=== PATIENT | female | born 1970 | race Caucasian/White ===

== ENCOUNTER → 2016-05-18 16:13 | Outpatient (CLI) | payer OTHER ==
[2016-04-09 16:25] VITALS: BMI 25.5
[~2016-05-18 16:13] MED LIST: ADIPEX-P37.5 M1 PO; EXCEDRIN CAPLET1 TAB PO
== END | disposition home or self-care (01) ==
LOC: D.MAMMO 09:00
DX: Z12.31 Encounter for screening mammogram for malignant neoplasm of breast (principal)

== ENCOUNTER → 2016-05-29 17:19 | Outpatient (CLI) | payer OTHER ==
[2016-04-09 16:25] VITALS: BMI 25.5
== END | disposition home or self-care (01) ==
LOC: D.MAMMO 10:45
DX: R92.8 Other abnormal and inconclusive findings on diagnostic imaging of breast (principal)

== ENCOUNTER 2017-02-05 20:18 | Inpatient (IN) | payer OTHER ==
[2017-02-05 20:52] LABS: BASOPHILS 0.1 % (0-2); EOSINOPHILS 0 % (0-7); HEMOGLOBIN 13.4 g/dL (12-16); IMMATURE GRANULOCYTES 0.1 % (0-5); LYMPHOCYTES 5.6 % (15-50); MCH 31.5 pg (26.0-34.0); MCHC 34.4 g/dL (31.0-37.0); MCV 91.5 fL (80.0-100.0); MEAN PLATELET VOLUME 9.8 fL (7.4-10.4); NEUTROPHILS 87.2 % (40-80); PLATELET COUNT 222 10x3/uL (130-400); RBC 4.26 10x6/uL (4.00-5.40); RDW 12.1 % (11.5-14.5)
[2017-02-05 21:08] LABS: ALBUMIN 3.2 g/dL (3.4-5.0); ANION GAP 14.6 mmol/L (8-16); CALCIUM 8.8 mg/dL (8.5-10.1); CARBON DIOXIDE 24.4 mmol/L (21.0-32.0); CREATININE - SERUM 1.3 mg/dL (0.6-1.3); PROTEIN - SERUM 7.4 g/dL (6.4-8.2)
[2017-02-05 21:19] LABS: HCG SERUM NEGATIVE (NEGATIVE)
[2017-02-05 21:29] LABS: APPEARANCE HAZY (CLEAR); BILIRUBIN NEGATIVE (NEGATIVE); COLOR YELLOW (YELLOW); GLUCOSE NEGATIVE (NEGATIVE); KETONE NEGATIVE (NEGATIVE); NITRITE NEGATIVE (NEGATIVE); PROTEIN 1+ mg/dL (NEGATIVE); UROBILINOGEN NORMAL (NORMAL)
[2017-02-05 21:31] LABS: BACTERIA MODERATE /hpf (NONE SEEN)
[2017-02-05] MEDS ORDERED: BYSTOLIC5 MG PO (23:45)
[2017-02-05] MEDS ORDERED: FERROUS SULFAT325 MG PO (23:46)
[2017-02-05] MEDS ORDERED: IBUPROFEN200 MG PO (23:47)
[2017-02-05] MEDS ORDERED: HYDROCODONE-APA1 TAB PO (23:48)
[2017-02-06] VITALS (14 sets, daily range): BP systolic 91–143; BP diastolic 50–71; BMI 28.3
[2017-02-07 04:00] VITALS: BP 121/71
[2017-02-07 05:55] LABS: BASOPHILS 0 % (0-2); EOSINOPHILS 0 % (0-7); IMMATURE GRANULOCYTES 0.3 % (0-5); LYMPHOCYTES 4.3 % (15-50); MCH 30.8 pg (26.0-34.0); MCHC 34.1 g/dL (31.0-37.0); MCV 90.2 fL (80.0-100.0); MEAN PLATELET VOLUME 9.8 fL (7.4-10.4); MONOCYTES 5.8 % (2-11); NEUTROPHILS 89.6 % (40-80); PLATELET COUNT 206 10x3/uL (130-400); RDW 12.4 % (11.5-14.5)
[2017-02-07 05:58] LABS: HEMATOCRIT 30.5 % (36.0-48.0); HEMOGLOBIN 10.4 g/dL (12-16); RBC 3.38 10x6/uL (4.00-5.40)
[2017-02-07 06:07] LABS: CALC OSMOLALITY 272 mosm/kg (275-300); CALCIUM 7.6 mg/dL (8.5-10.1); CARBON DIOXIDE 24.8 mmol/L (21.0-32.0); CHLORIDE - SERUM 104 mmol/L (98-107); GLUCOSE 131 mg/dL (74-106); POTASSIUM - SERUM 3.3 mmol/L (3.5-5.1); SODIUM 136 mmol/L (136-145); UREA NITROGEN 11 mg/dL (7-18); eGFR NON AFRICAN AMERICAN 82 mL/min (90-120)
[2017-02-07 06:08] LABS: CREATININE - SERUM 0.8 mg/dL (0.6-1.3)
[2017-02-07 08:43] VITALS: BP 152/86
[2017-02-07] MEDS ORDERED: BACTRIM DS TABL1 TAB PO (10:28)
[2017-02-07] MEDS ORDERED: HYDROCODONE-APA1 TAB PO (10:28)
--- NOTE | 2017-02-07 10:29 | OP ---
PATIENT NAME: RADHA NUNEZ MEDICAL RECORD: [id number] :74 LOCATION:[id number] ADMISSION DATE:02/05/17 SURGEON: RAOUL SEXTON MD DATE OF OPERATION: 02/06/2017 PREOPERATIVE DIAGNOSIS: Acute appendicitis with localized peritonitis. POSTOPERATIVE DIAGNOSIS: Acute appendicitis with localized peritonitis. PROCEDURE: Laparoscopic appendectomy. SURGEON: Raolu Sexton MD REPORT OF PROCEDURE: The patient's abdomen was prepped and draped in sterile fashion. A cutdown was made on the superior aspect of the umbilicus, 0 Vicryls were placed in the fascia bilaterally and the fascia was incised with a 15 blade. I then bluntly entered the peritoneal cavity and placed a 12-mm Jason port. Under direct visualization, a 5-mm trocar was placed in the left lateral abdomen and a 5-mm trocar was placed in the left lower quadrant. There were a lot of inflammatory changes in the pelvis. We were able to dissect through these and there was some murky appearing fluid, but no alvin pus. The appendix was visualized stuck to the lateral pelvis. We were able to free up these adhesions and elevate the appendix. Any attachments were taken down and we made a window between the base of the appendix and the mesoappendix near the cecum. We then fired through the patient's mesoappendix with a 45 white load Endo-ROXANNA stapler. The base of the appendix at the cecum was then transected with a 45 blue load Endo-ROXANNA stapler. The appendix itself was necrotic with a perforation noted. This was then placed into an EndoCatch bag. We did a thorough inspection of the abdomen and took down any of the inflammatory adhesions. We then irrigated out the abdomen and pelvis until there was a good clear return of fluid. All the murky fluid that was found was irrigated out thoroughly. At the conclusion of the case, there was no sign of any active bleeding. The staple lines appeared to be intact. At this point, the ports and insufflation were then removed and the appendix was taken out through the umbilicus. The umbilical fascia was closed with interrupted 0 Vicryls times 3. The wounds were irrigated out with normal saline and infused with 10 mL of 0.25% Marcaine with epinephrine. The skin incisions were all closed with subcutaneous 5-0 Monocryl and dressed appropriately. COMPLICATIONS: None. CONDITION: Stable. ANESTHESIA: General endotracheal and local. BLOOD LOSS: Minimal. TRANSINT:[id number] Voice Confirmation ID: [id number] DOCUMENT ID: [id number] OPERATIVE REPORT [id number] RADHA NUNEZ CHRISTIAN MD at 1029 CC: [id number] DICTATION DATE: 02/06/17926 FILM PROJECTOR OPERATOR: 02/06/17 1033 ADM IN [id number] [place] [address]
--- NOTE | 2017-03-08 14:45 | DS ---
PATIENT:RADHA NUNEZ :74 MEDICAL RECORD: [id number] DISCHARGE SUMMARY ADMISSION DATE: 02/05/17 DISCHARGE DATE: 02/07/17 DATE OF ADMISSION: 02/05/2017. DATE OF DISCHARGE: 02/07/2017. ADMISSION DIAGNOSIS: Acute appendicitis with localized peritonitis. DISCHARGE DIAGNOSIS: Acute appendicitis with localized peritonitis. PROCEDURE: Laparoscopic appendectomy on 02/06/2017. CONSULTATIONS: None. REPORT OF HOSPITALIZATION: The patient was admitted to the hospital through the ER with CT findings of acute appendicitis. She was taken to the operating room that morning where she underwent a laparoscopic appendectomy. The following day, she was doing well and felt to be stable for discharge home. DISCHARGE INSTRUCTIONS: Return to clinic or call with any questions or concerns, fevers, chills, nausea, vomiting or worsening abdominal pain. ACTIVITIES: No heavy lifting or straining for 2 weeks. FOLLOWUP: In clinic with me in 2-3 weeks. DISCHARGE MEDICATIONS: Resume home medications with the inclusion of Bactrim-DS. TRANSINT:[id number] Voice Confirmation ID: [id number] DOCUMENT ID: [id number] ELIO SEXTON MD at 1445 CC: [id number] DICTATION DATE: 03/02/17 1454 FRUIT AND VEGETABLE INSPECTOR: 03/02/17 1502 DIS IN 02/07/17 [address] [place] [address]
== END 2017-02-07 12:44 | disposition home or self-care (01) | DRG 340 ==
LOC: D.ER 20:18 → D.MS 22:47
PROVIDERS: Emergency Medicine; ADMIT Surgery
PROC: 0DTJ4ZZ Resection of Appendix, Percutaneous Endoscopic Approach (ICD-10-PCS; principal; 2017-02-06 08:00)
DX: K35.3 Acute appendicitis with localized peritonitis (principal)

== ENCOUNTER 2017-03-18 05:45 | Day surgery (SDC) | payer OTHER ==
[2017-03-16 10:52] LABS: BASOPHILS 0.3 % (0-2); EOSINOPHILS 2.1 % (0-7); HEMATOCRIT 37.7 % (36.0-48.0); HEMOGLOBIN 12.7 g/dL (12-16); IMMATURE GRANULOCYTES 0.1 % (0-5); MCH 30.4 pg (26.0-34.0); MCHC 33.7 g/dL (31.0-37.0); MCV 90.2 fL (80.0-100.0); MEAN PLATELET VOLUME 9.6 fL (7.4-10.4); MONOCYTES 4.5 % (2-11); RBC 4.18 10x6/uL (4.00-5.40); RDW 12.8 % (11.5-14.5); WBC 7.1 10x3/uL (4.8-10.8)
[2017-03-16 10:56] LABS: PLATELET COUNT 248 10x3/uL (130-400)
[~2017-03-18] VITALS: Ht 167.6 cm; Wt 80.7 kg
[~2017-03-18 05:45] MED LIST changes: +BACTRIM DS TABL1 TAB PO; +BYSTOLIC5 MG PO; +FERROUS SULFAT325 MG PO; +HYDROCODONE-APA1 TAB PO; +IBUPROFEN200 MG PO
[2017-03-18] MEDS ORDERED: BYSTOLIC5 MG PO (06:20)
[2017-03-18 06:21] VITALS: BP 145/89; Ht 167.6 cm; Wt 80.7 kg
[2017-03-18 06:45] LABS: HCG URINE NEGATIVE (NEGATIVE)
--- NOTE | 2017-03-18 10:04 | NUR ---
0997--PT VOIDS WITHOUT DIFFICULTY, IV DC'D. BRANDON VILLARREAL 1000--DISCHARGE INSTRUCTIONS GIVEN, PT VERBALIZES UNDERSTANDING. PT OFF UNIT VIA WC. BRANDON VILLARREAL
--- NOTE | 2017-03-18 16:41 | OP ---
PATIENT NAME: RADHA NUNEZ MEDICAL RECORD: [id number] :74 LOCATION:D[facility] ADMISSION DATE: SURGEON: JENNY NUGENT MD DATE OF OPERATION: 03/18/2017 PREOPERATIVE DIAGNOSES: 1. Uterine fibroids. 2. Endometrial polyps. 3. Menorrhagia. POSTOPERATIVE DIAGNOSES: 1. Uterine fibroids. 2. Endometrial polyps. 3. Menorrhagia. PROCEDURE: Hysteroscopy, D&C. SURGEON: Jenny Nugent MD ESTIMATED BLOOD LOSS: Minimal. INTRAVENOUS FLUIDS: Per anesthesia record. HYSTEROSCOPIC FLUID LOSS: Approximately 200 cc of 0.9 normal saline. FINDINGS: 1. Enlarged leiomyomatous uterus sounded to approximately 11 cm. 2. Multiple endometrial polyps noted. 3. Grossly normal external genitalia. PROCEDURE IN DETAIL: The patient was taken to the operating room where general anesthesia was achieved without difficulty. The patient was then prepped and draped in normal sterile fashion in the dorsal lithotomy position. The cervix was then prepped and grasped on its anterior lip with a single tooth tenaculum. The uterus sounded to approximately 11 cm. At this point, the cervix was carefully dilated to approximately 8 mm at which point, the hysteroscope was introduced without resistance. Difficulty insufflating the cavity was noted due to the fibroids. The only pathology noted was multiple endometrial polyps. At this point, curettage was performed of all 4 quadrants of the uterus with minimal bleeding noted after the procedure. The tenaculum was then removed and then the speculum removed. The patient tolerated the procedure well, transferred to postanesthesia recovery stable without incident. TRANSINT:[id number] Voice Confirmation ID: [id number] DOCUMENT ID: [id number] JENNY NUGENT MD at 1641 CC: [id number] DICTATION DATE: 03/18/17 0808 GUZZLER BUILDER: 03/18/17 1012 [facility] 03/18/[address] [address]
== END 2017-03-18 10:00 | disposition home or self-care (01) ==
LOC: D.OPS 05:45 → D.PAN 09:30 → D.OPS 10:00
PROVIDERS: Obstetrics & Gynecology
DX: D25.9 Leiomyoma of uterus, unspecified (principal); N84.0 Polyp of corpus uteri; N92.0 Excessive and frequent menstruation with regular cycle; Z01.812 Encounter for preprocedural laboratory examination

== ENCOUNTER 2017-04-15 05:08 | Inpatient (IN) | payer OTHER ==
[2017-04-13 12:33] LABS: BASOPHILS 0.4 % (0-2); EOSINOPHILS 2.7 % (0-7); HEMATOCRIT 38.7 % (36.0-48.0); IMMATURE GRANULOCYTES 0.1 % (0-5); LYMPHOCYTES 18.9 % (15-50); MCH 30.5 pg (26.0-34.0); MCHC 33.6 g/dL (31.0-37.0); MCV 90.8 fL (80.0-100.0); MEAN PLATELET VOLUME 9.5 fL (7.4-10.4); MONOCYTES 5.6 % (2-11); NEUTROPHILS 72.3 % (40-80); PLATELET COUNT 258 10x3/uL (130-400); RBC 4.26 10x6/uL (4.00-5.40); RDW 12.8 % (11.5-14.5); WBC 7.2 10x3/uL (4.8-10.8)
[2017-04-13 12:44] LABS: CALC OSMOLALITY 277 mosm/kg (275-300); CALCIUM 8.9 mg/dL (8.5-10.1); CARBON DIOXIDE 27.7 mmol/L (21.0-32.0); CHLORIDE - SERUM 104 mmol/L (98-107); CREATININE - SERUM 0.8 mg/dL (0.6-1.3); GLUCOSE 97 mg/dL (74-106); POTASSIUM - SERUM 3.7 mmol/L (3.5-5.1); SODIUM 138 mmol/L (136-145); UREA NITROGEN 17 mg/dL (7-18); eGFR NON AFRICAN AMERICAN 82 mL/min (90-120)
[2017-04-15] VITALS (10 sets, daily range): BP systolic 96–123; BP diastolic 58–75; Ht 167.6 cm; Wt 80.9 kg
[~2017-04-15] VITALS: Ht 167.6 cm; Wt 80.9 kg
[2017-04-15 06:12] LABS: HCG URINE NEGATIVE (NEGATIVE)
[2017-04-15 15:28] LABS: BASOPHILS 0 % (0-2); EOSINOPHILS 0 % (0-7); HEMOGLOBIN 11.4 g/dL (12-16); IMMATURE GRANULOCYTES 0.1 % (0-5); LYMPHOCYTES 3.1 % (15-50); MCH 30.6 pg (26.0-34.0); MCHC 34.5 g/dL (31.0-37.0); MCV 88.7 fL (80.0-100.0); MEAN PLATELET VOLUME 9.3 fL (7.4-10.4); MONOCYTES 3.2 % (2-11); NEUTROPHILS 93.6 % (40-80); PLATELET COUNT 227 10x3/uL (130-400); RBC 3.72 10x6/uL (4.00-5.40); RDW 12.4 % (11.5-14.5); WBC 13.9 10x3/uL (4.8-10.8)
[2017-04-15 15:40] LABS: CALC OSMOLALITY 276 mosm/kg (275-300); CALCIUM 8.1 mg/dL (8.5-10.1); CARBON DIOXIDE 24.9 mmol/L (21.0-32.0); CHLORIDE - SERUM 103 mmol/L (98-107); CREATININE - SERUM 0.7 mg/dL (0.6-1.3); GLUCOSE 136 mg/dL (74-106); POTASSIUM - SERUM 4.3 mmol/L (3.5-5.1); SODIUM 137 mmol/L (136-145); UREA NITROGEN 16 mg/dL (7-18); eGFR NON AFRICAN AMERICAN > 90 mL/min (90-120)
[2017-04-16] VITALS (7 sets, daily range): BP systolic 115–144; BP diastolic 58–77
[2017-04-16 06:18] LABS: BASOPHILS 0.1 % (0-2); EOSINOPHILS 0.4 % (0-7); HEMATOCRIT 31.7 % (36.0-48.0); HEMOGLOBIN 10.7 g/dL (12-16); IMMATURE GRANULOCYTES 0.2 % (0-5); LYMPHOCYTES 15.1 % (15-50); MCH 30.7 pg (26.0-34.0); MCHC 33.8 g/dL (31.0-37.0); MCV 91.1 fL (80.0-100.0); MEAN PLATELET VOLUME 9.5 fL (7.4-10.4); MONOCYTES 6.9 % (2-11); NEUTROPHILS 77.3 % (40-80); PLATELET COUNT 225 10x3/uL (130-400); RBC 3.48 10x6/uL (4.00-5.40); RDW 12.7 % (11.5-14.5); WBC 11.1 10x3/uL (4.8-10.8)
[2017-04-16 06:30] LABS: ANION GAP 10.2 mmol/L (8-16); CALCIUM 8.2 mg/dL (8.5-10.1); CARBON DIOXIDE 28.5 mmol/L (21.0-32.0); POTASSIUM - SERUM 3.7 mmol/L (3.5-5.1)
[2017-04-16] MEDS ORDERED: MOTRIN600 MG PO (19:39)
[2017-04-16] MEDS ORDERED: HYDROCODONE-APA1 TAB PO (19:39)
[2017-04-17 03:25] VITALS: BP 133/68
[2017-04-17 07:17] VITALS: BP 123/63
[2017-04-17] MEDS ORDERED: HYDROCODONE-APA1 TAB PO (10:00)
[2017-04-17] MEDS ORDERED: IBUPROFEN600 MG PO (10:00)
== END 2017-04-17 10:30 | disposition home or self-care (01) | DRG 743 ==
LOC: D.WS 05:08 → D.SDCHOLD 05:08 → D.WS 10:10 → D.LD 04-16 15:08
PROVIDERS: Obstetrics & Gynecology
PROC: 0UT50ZZ Resection of Right Fallopian Tube, Open Approach (ICD-10-PCS; 2017-04-15)
PROC: 0UT90ZZ Resection of Uterus, Open Approach (ICD-10-PCS; principal; 2017-04-15 07:30)
PROC: 0UB20ZZ Excision of Bilateral Ovaries, Open Approach (ICD-10-PCS; 2017-04-15 07:30)
DX: D25.9 Leiomyoma of uterus, unspecified (principal); D64.9 Anemia, unspecified; I10 Essential (primary) hypertension; N85.01 Benign endometrial hyperplasia